=== PATIENT | female | born 1980 | race Two or more races ===

== ENCOUNTER 2020-06-20 01:21 | Emergency (ER) | payer BC ==
[~2020-06-20] VITALS: Ht 167.6 cm; Wt 80.3 kg
[2020-06-20] MEDS ORDERED: SODIUM CHLORIDE FLUSH 10ML SYR IVF ONE (02:00)
[2020-06-20] MEDS ORDERED: SODIUM CHLORIDE 0.9% 1,000ML IVBOLUS ONE (02:00)
[2020-06-20 02:12] LABS: BASOPHILS % (AUTO) 1 % (0-1); EOSINOPHILS % (AUTO) 0 % (1-7); LYMPHOCYTES % (AUTO) 26 % (22-44); MEAN CORPUSCULAR HEMOGLOBIN 31.1 pg (27.0-34.8); MEAN CORPUSCULAR HGB CONC 34.2 g/dL (32.4-35.8); MONOCYTES % (AUTO) 7 % (2-9); NEUTROPHILS % (AUTO) 67 % (42-75); PLATELET COUNT 281 x10^3/uL (130-400); RED BLOOD COUNT 4.32 x10^6/uL (3.82-5.3); RED CELL DISTRIBUTION WIDTH 13.1 % (9.6-15.2)
[2020-06-20 02:14] LABS: MD NO
--- NOTE | 2020-06-20 02:18 | NUR ---
TASK RN: PIV ACCESS ESTABLISHED AT THIS TIME. PT ATTACHED TO ALL VS AND RAMP MANAGER. VSS. PT EDUCATED ON ER PROCESS AND POC AND VERBALIZES UNDERSTANDING. PT HAS CALL LIGHT WITHIN REACH AND DENIES ANY OTHER NEEDS AT THIS TIME.
[2020-06-20 02:22] LABS: ALANINE AMINOTRANSFERASE 20 U/L (12-78); ALBUMIN 4.6 g/dL (3.4-5.0); ANION GAP 10 mmol/L (5-15); CALCIUM 9.8 mg/dL (8.5-10.1); CHLORIDE 106 mmol/L (98-107); CREATININE 0.98 mg/dL (0.55-1.02)
[2020-06-20] MEDS ORDERED: ONDANSETRON 2MG/ML, 2ML IVPush ONE (02:30)
[2020-06-20] MEDS ORDERED: LORazepam 2 MG/ML, 1ML IVPush ONE (02:30)
[2020-06-20 02:31] LABS: ALKALINE PHOSPHATASE 73 U/L (45-117); BILIRUBIN,TOTAL 0.4 mg/dL (0.2-1.0); T4 (THYROXINE) 9.1 mcg/dL (4.8-13.9); TOTAL PROTEIN 8.5 g/dL (6.4-8.2)
[2020-06-20] MEDS ORDERED: ONDANSETRON 2MG/ML, 2ML ONE (02:36)
[2020-06-20] MEDS ORDERED: LORazepam 2 MG/ML, 1ML ONE (02:36)
--- NOTE | 2020-06-20 02:50 | NUR ---
TASK RN: REPORT OF PT TO BRENDON BADILLO. PT REPORTS FEELING RELIEF AFTER MEDICATION ADMINISTRATION. PT CALM IN GURNEY AT THIS TIME WITH CALL LIGHT WITHIN REACH AND NORMAL VS.
[2020-06-20 04:00] VITALS: BP 132/69
== END 2020-06-20 04:02 | disposition home or self-care (01) ==
LOC: ED 03:55
DX: R00.2 Palpitations (principal); F41.1 Generalized anxiety disorder; R11.2 Nausea with vomiting, unspecified; R00.0 Tachycardia, unspecified
CPT/HCPCS: 36415; 80053; 80320; 84436; 84443; 84703; 85025; 93005; 96361; 96374; 96375; 99284; J2060; J2405; J7030; G0480